=== PATIENT | female | born 2000 | race Two or more races ===

== ENCOUNTER → 2019-09-15 | Emergency (ER) | payer MEDICAID, OTHER ==
[~2019-09-15] VITALS: Ht 162.6 cm; Wt 72.6 kg
[~2019-09-15] MED LIST: LIDOCAINE 1% HCL (LOCAL ANESTH.) INJ 20ML MDV IJ ONE; TETANUS-DIPTH-ACEL PERTUSSIS 0.5ML SYR Tdap IM ONE
[2019-09-15 02:09] VITALS: BP 119/80
== END | disposition home or self-care (01) ==
LOC: ER 02:08
DX: S61.511A Laceration without foreign body of right wrist, initial encounter (principal); W25.XXXA Contact with sharp glass, initial encounter; Y93.89 Activity, other specified; Y92.89 Other specified places as the place of occurrence of the external cause; Y99.8 Other external cause status
CPT/HCPCS: 12002; 73100; 99283; J2001; 90715